=== PATIENT | female | born 1980 | race African-American/Black ===

== ENCOUNTER 2017-07-21 22:44 | Emergency (ER) | payer SELFPAY ==
--- NOTE | 2017-07-21 23:11 | ED Physician Documentation ---
General Adult - HISTORIAN Historian: patient - HPI Stated Complaint: hand lac Chief Complaint: General Adult Additional Information: Cut left palm with scissors while cutting hair at 1730 today. No treatment attempted. Unknown last tetanus. Onset: hours - ROS CONST: no problems - PAST HX Past History: none Allergies/Adverse Reactions: Allergies Allergy/AdvReac Type Severity Reaction Status Date / Time No Known Drug Allergies Allergy Unverified 12/07/12 15:00 - SOCIAL HX Smoking History: non-smoker - FAMILY HX Family History: No - REVIEWED ASSESSMENTS Nursing Assessment Reviewed: Yes Vitals Reviewed: Yes Procedures Wound Location: upper extremity Wound Length: 1.5 Wound's Depth, Shape: superficial Wound Explored: clean Betadine Prep?: No (chlorhexadine, NS) Wound Repaired With: Dermabond ED Results Lab/Radiology - Orders Orders: ED Orders Category Date Time Status Cleanse with NS and Chlorhexid 1T Care 07/21/17 23:08 Ordered Diph,Pertuss(Acell),Tet Vac/Pf [Adacel] Med 07/21/17 23:08 Once 0.5 ml IM .ONCE ONE General Adult Physical Exam - PHYSICAL EXAM GENERAL APPEARANCE: mild distress (anxious) EENT: eye inspection normal, ENT inspection normal NECK: supple RESPIRATORY: no resp distress BACK: other (movements w/o pain) SKIN: warm/dry, other (1.5 cm L-shaped lac left palm, supercicial. Full active ROM. ) EXTREMITIES: normal range of motion (gait and stance), no evidence of injury NEURO: CN's nml as tested, motor nml, sensation nml, cognition normal Discharge Clincal Impression: Hand laceration Qualifiers: Encounter type: initial encounter Foreign body presence: without foreign body Laterality: left Qualified Code(s): S61.412A - Laceration without foreign body of left hand, initial encounter Referrals: Susu Morse FNP [Primary Care Provider] - 2 Days Additional Instructions: Allow the glue to wear off. Don't scratch or pick at it. Wear a glove on the hand when seeing clients. Condition: Good Disposition: 01 HOME, SELF-CARE Decision to Admit: NO Decision Time: 23:32
[2017-07-21] MEDS: DIPH,PERTUSS(ACELL),TET VAC/PF 0.5 ML DISP.SYRIN IM ONE (23:45)
[2017-07-22 01:14] VITALS: BP 139/68
== END 2017-07-21 23:45 | disposition home or self-care (01) ==
LOC: ED 22:44
DX: S61.412A Laceration without foreign body of left hand, initial encounter (principal); X58.XXXA Exposure to other specified factors, initial encounter; Y92.9 Unspecified place or not applicable; Y93.9 Activity, unspecified; Y99.9 Unspecified external cause status
CPT/HCPCS: 12001; 90471; 90715